=== PATIENT | male | born 1970 | race African-American/Black ===

== ENCOUNTER 2020-12-18 13:03 | Emergency (ER) | payer MEDICAID ==
[~2020-12-18] VITALS: Ht 175.3 cm; Wt 75.0 kg
[2020-12-18] MEDS ORDERED: IBUPROFEN 600MG TABLET PO STA (13:44)
[2020-12-18 14:08] LABS: BASOPHILS % 1.2 % (0.0-2.0); EOSINOPHILS % 1.6 % (0.0-5.0); HEMATOCRIT. 41.4 % (42.0-52.0); HEMOGLOBIN. 14.2 g/dL (14.0-18.0); LYMPHOCYTES % 39.5 % (20.0-50.0); MEAN CORPUSCULAR HEMOGLOBIN 28.2 pg (28.0-32.0); MEAN CORPUSCULAR VOLUME 82.2 fL (80.0-94.0); MEAN PLATELET VOLUME 8.9 fl (7.4-10.4); MONOCYTES % 6.6 % (2.0-8.0); NEUTROPHILS % 51.1 % (40.0-76.0); PLATELET 248 x1000/uL (130-400); RED BLOOD CELL COUNT 5.04 mill/uL (4.7-6.1)
[2020-12-18 14:17] LABS: CHLORIDE 102 mEq/L (98-107)
[2020-12-18] MEDS ORDERED: IBUP-2029 MT (15:22)
[2020-12-18 15:30] VITALS: BP 130/87
== END 2020-12-18 15:35 | disposition home or self-care (01) ==
LOC: ER 13:03
DX: R07.9 Chest pain, unspecified (principal); F41.9 Anxiety disorder, unspecified; F32.9 Major depressive disorder, single episode, unspecified
CPT/HCPCS: 36415; 71045; 80053; 84484; 85025; 93005; 99285